=== PATIENT | male | born 1930 | race Caucasian/White ===

== ENCOUNTER 2021-09-12 02:47 | Emergency (ER) | payer OTHER, MEDICARE ==
[~2021-09-12] VITALS: Ht 182.9 cm; Wt 97.0 kg
[2021-09-12 05:27] VITALS: BP 135/68
--- NOTE | 2021-09-12 05:28 | NUR ---
Unable to med rec. Pt does not know his medications. No external meds. Pt doctors at [facility]
[2021-09-12] MEDS ORDERED: HYDROcodone/acetaminophen 5mg/325mg tablet PO ONE (07:05)
--- NOTE | 2021-09-12 09:18 | NUR ---
ambulated to restroom at this time
[2021-09-12] MEDS ORDERED: HYDR-3964 PO (09:19)
== END 2021-09-12 09:34 | disposition home or self-care (01) ==
LOC: ER 02:48
DX: S39.012A Strain of muscle, fascia and tendon of lower back, initial encounter (principal); M54.6 Pain in thoracic spine; G20 Parkinson's disease; E11.9 Type 2 diabetes mellitus without complications; Z87.891 Personal history of nicotine dependence; Z79.899 Other long term (current) drug therapy; W19.XXXA Unspecified fall, initial encounter; Y93.89 Activity, other specified; Y92.89 Other specified places as the place of occurrence of the external cause; Y99.8 Other external cause status
CPT/HCPCS: 72070; 72100; 99284